=== PATIENT | female | born 1960 | race Caucasian/White ===

== ENCOUNTER 2020-11-06 09:54 | Outpatient (CLI) | payer OTHER, SELFPAY ==
--- NOTE | 2020-11-06 10:03 | MM_ITS ---
WS: [id number] BILATERAL SCREENING DIGITAL MAMMOGRAM WITH CAD HISTORY: SCREENING COMPARISON: None available. Bilateral CC and MLO views submitted. Computer aided detection analyzed. Breast composition: The breasts are heterogeneously dense, which may obscure small masses. No suspici ous masses, microcalcifications or architectural distortion. Benign-appearing calcification in the ce ntral LEFT breast. MM/[id number] IMPRESSION: BI-RADS: 2-Benign FOLLOW UP: 1 Year Follow-up
== END 2020-11-06 09:55 | disposition home or self-care (01) ==
LOC: RADSHAW 10:01
PROVIDERS: PCP Electrodiagnostic Medicine; Visit Provider Electrodiagnostic Medicine
DX: Z12.31 Encounter for screening mammogram for malignant neoplasm of breast (principal)
CPT/HCPCS: 77067

== ENCOUNTER → 2022-03-26 09:39 | Outpatient (BNVA) | payer OTHER, SELFPAY | PROVIDERS: PCP Family Medicine; Visit Provider Family Medicine | DX: I10 Essential (primary) hypertension (principal); R00.2 Palpitations; L65.9 Nonscarring hair loss, unspecified; R53.83 Other fatigue; H81.10 Benign paroxysmal vertigo, unspecified ear; M17.11 Unilateral primary osteoarthritis, right knee; Z76.89 Persons encountering health services in other specified circumstances; Z00.00 Encounter for general adult medical examination without abnormal findings | CPT/HCPCS: 80053; 80061; 83735; 84443; 85025 ==

== ENCOUNTER 2022-11-21 09:26 | Outpatient (CLI) | payer OTHER, SELFPAY ==
--- NOTE | 2022-11-21 09:34 | MM_ITS ---
WS: [id number] SCREENING DIGITAL TOMOSYNTHESIS MAMMOGRAM WITH CAD HISTORY: SCREENING COMPARISON: 11/06/2020 and 04/24/2016 Bilateral CC and MLO with tomosynthesis views submitted. Synthetic mammography reviewed. Computer aid ed detection analyzed. Breast composition: The breasts are heterogeneously dense, which may obscure small masses. No suspici ous masses, microcalcifications or architectural distortion. MM/[id number] IMPRESSION: BI-RADS: 1-Negative FOLLOW UP: 1 Year Follow-up
== END 2022-11-21 09:27 | disposition home or self-care (01) ==
PROVIDERS: PCP Family Medicine; Visit Provider Family Medicine
DX: Z12.31 Encounter for screening mammogram for malignant neoplasm of breast (principal)
CPT/HCPCS: 77063; 77067

== ENCOUNTER → 2023-02-05 16:06 | Outpatient (BNVA) | payer OTHER, SELFPAY | PROVIDERS: PCP Family Medicine; Visit Provider Family Medicine | DX: I10 Essential (primary) hypertension (principal) | CPT/HCPCS: 80048 ==

== ENCOUNTER 2023-02-10 07:36 | Emergency (ER) | payer OTHER, SELFPAY ==
[2023-02-10 07:40] VITALS: BP 164/80; PULSE 60; RESP 18; TEMP 36.4; O2SAT 100; BMI 30.7
--- NOTE | 2023-02-10 07:48 | ED_ITS ---
HPI - Extremity Injury (Lower) General: Chief Complaint: Extremity Problem,Nontraumatic Stated Complaint: knee injury Time Seen by Provider: 02/10/23 07:36 Source: patient Mode of arrival: wheelchair Limitations: no limitations History of Present Illness: Patient is a very nice 63-year-old female presents to ED today for evaluation of right knee pain/injury. Patient states a few days ago while at work she was pushing a wheelchair when she felt like she tweaked the knee. She states she continued to be ambulatory on the extremity without much difficulty. She states yesterday evening she was at home and states she was standing/pivoted the knee and felt like she twisted it . She states since then she has noticed swelling and fairly significant discomfort limiting ambulation. She arrives with a knee brace. Denies any previous injuries to the knee. She does have a known history of osteoarthritis diagnosed by her PCP Dr. Meyer. Denies calf pain/swelling. No redness/warmth to the joint. MD complaint: knee injury Onset (ago): day(s) Place: home and work Severity: moderate Relieving factors: immobilization Exacerbating factors: weight bearing, movement and palpation Context: walking and other (twisting) Associated symptoms: Reports inability to bear weight Other symptoms: none Treatments prior to arrival: other (knee brace) Review of Systems Card: Denies: chest pain Resp: Denies: dyspnea Musc: Reports: joint pain (R knee), joint swelling (R knee) and limited range of motion; Denies: neck pain, back pain, extremity pain, extremity swelling, joint redness or joint warmth Neuro: Reports: difficulty walking (secondary to R knee pain); Denies: numbness in extremities or sensory changes PFS ED PFSH: Medical History Hypertension Osteoarthritis of right knee Surgical History History of dilatation and curettage Family History Mother Diabetes CAD (coronary artery disease) Chronic kidney disease (CKD) Stroke Denies family history of Cancer Social History Smoking and tobacco status: never smoked Alcohol intake: never Substance/Drug Use: never Lives independently: Yes Household members: spouse Marital status: Number of children: 2 Current occupational status: retired 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 Exam Const: COMMON NORMALS: no acute distress, average body habitus, patient oriented x3, no limitations, healthy appearing, alert and well nourished Extremity: COMMON NORMALS: capillary refill normal, no clubbing, cyanosis or edema, no calf tenderness and no pedal edema GENERAL: Yes normal exam except as noted RIGHT LOWER EXTREMITY: Yes knee joint (TTP posteriolateral joint line; effusion) Right knee: Yes ROM (almost full ROM but slightly restricted secondary to edema), Yes neurovascular exam (normal) and Yes other (no obvious joint laxity noted ) Neuro: COMMON NORMALS: patient oriented x3, moves all extremities, no focal motor deficits and no sensory deficits noted SENSORIUM/ORIENTATION: Yes alert Course Vital Signs: Vital signs: Vital Signs Temperature 97.6 F 02/10/23 07:40 Pulse Rate 60 02/10/23 07:40 Respiratory Rate 18 02/10/23 07:40 Blood Pressure 164/80 02/10/23 07:40 Pulse Oximetry 100 02/10/23 07:40 Oxygen Delivery Me thod Room Air 02/10/23 07:40 MDM - Extremity Injury (Lower) Medical Decision Making XR negative for acute injury. She has significant arthritis/degenerative changes throughout the joint. At this time we will have her continue wearing her knee brace, give her crutches with instructions for weightbearing as tolerated, ice/elevation/NSAIDS, and have her followup with PCP in 1-2 weeks if knee pain does not seem to be improving. Discharge Plan Discharge Patient Disposition: Home Clinical Impression: Right knee sprain Qualifiers: Encounter type: initial encounter Involved ligament of knee: unspecified ligament Qualified Code(s): S83.91XA - Sprain of unspecified site of right knee, initial encounter Condition: Stable Prescriptions: New Medrol (Otto) 4 mg tablets,dose pack See Rx Instructions .ROUTE .COMPLEX Qty: 21 0RF Rx Instructions: orally per package directions No Action metoprolol succinate 100 mg tablet extended release 24 hr 100 mg PO DAILY 90 Days Qty: 90 0RF lisinopril 20 mg tablet 20 mg PO DAILY Qty: 90 1RF amoxicillin 500 mg tablet 500 mg PO BID Qty: 20 0RF Discharge Orders: Discharge ED (Routine); Ordered 02/10/23 Ordered By: Bita Hernandez Referrals: Jennifer Meyer MD [Primary Care Provider] - Patient Instructions: Knee Sprain (DC) Activity Restrictions/Additional Instructions: As we discussed you may use crutches as needed/weightbearing as tolerated. You need to ice and elevate the knee as much as possible to help with swelling. Begin taking an over the counter anti-inflammatory such as Ibuprofen or Naproxen. Continue to wear your knee brace. Please follow-up with your primary care provider in 1 to 2 weeks if symptoms do not seem to be improving. Stand Alone Forms: Work/School Release Coding Level of Care Code ED Certified Coatings Inspector for Chester Casanova
--- NOTE | 2023-02-10 07:53 | XRR_ITS ---
PROCEDURE INFORMATION: Exam: XR Right Knee Exam date and time: 02/10/2023 8:10 AM Age: 63 years old Clinical indication: Injury or trauma; Fall; Blunt trauma; Knee; Right; Additional info: Injury/swelling TECHNIQUE: Imaging protocol: Radiologic exam of the right knee. 3image(s) are provided. Views: 3 views. COMPARISON: No relevant prior studies available. FINDINGS: Bones/joints: Osseous alignment is maintained.No displaced fracture or dislocation is appreciated. There is a small amount of joint fluid present. There is some chronic advanced degeneration with multi compartmental spurring and narrowing including at the patellofemoral and medial compartments predominantly. There is some patellar quadriceps insertional spurring present. Soft tissues: There is some slight prominence of the soft tissues overall. No radiopaque foreign body or subcutaneous emphysema is appreciated. XR/XR knee RT 3V* [id number] IMPRESSION: 1. Osseous alignment is maintained.No fracture or dislocation is appreciated. 2. There is multi compartmental degeneration demonstrated as well as a small amount of joint fluid.
== END 2023-02-10 08:38 | disposition home or self-care (01) ==
PROVIDERS: Emergency Provider Physician Assistant; PCP Family Medicine
DX: S83.91XA Sprain of unspecified site of right knee, initial encounter (principal); I10 Essential (primary) hypertension; X50.9XXA Other and unspecified overexertion or strenuous movements or postures, initial encounter
CPT/HCPCS: 73562; 99283

== ENCOUNTER 2023-04-03 15:35 | Emergency (ER) | payer OTHER, SELFPAY ==
[2023-04-03 15:42] VITALS: BP 172/86; PULSE 81; RESP 18; TEMP 36.6; O2SAT 97; BMI 30.7
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
== END 2023-04-03 16:21 | disposition home or self-care (01) ==
PROVIDERS: Emergency Provider Physician Assistant; PCP Family Medicine
DX: S51.852A Open bite of left forearm, initial encounter (principal); Y04.1XXA Assault by human bite, initial encounter; Y92.210 Daycare center as the place of occurrence of the external cause; Y99.0 Civilian activity done for income or pay; I10 Essential (primary) hypertension; Y07.44 Child, perpetrator of maltreatment and neglect
CPT/HCPCS: 99283

== ENCOUNTER → 2024-03-28 10:34 | Outpatient (BNVA) | payer OTHER, SELFPAY | PROVIDERS: PCP Family Medicine; Visit Provider Family Medicine | DX: I10 Essential (primary) hypertension (principal) | CPT/HCPCS: 80053; 80061; 83036; 85025 ==

== ENCOUNTER → 2024-08-18 12:43 | Outpatient (BNVA) | payer OTHER, SELFPAY | PROVIDERS: PCP Family Medicine; Visit Provider Internal Medicine | DX: R07.9 Chest pain, unspecified (principal); R94.31 Abnormal electrocardiogram [ECG] [EKG] | CPT/HCPCS: 93005 ==

== ENCOUNTER 2024-10-03 11:09 | Outpatient (CLI) | payer OTHER, SELFPAY ==
--- NOTE | 2024-10-03 | ECG_ITS ---
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 Baseline heart rate was 84 beats per minute. Baseline blood pressure was 173/95 millimeters of mercury. Target heart rate was 157 beats per minute. Maximum heart rate achieved was 144, which was 91% of the target heart rate. Maximum blood pressure was 203/95 millimeters of mercury. Total exercise time was 5 minutes 1 second. Maximum METs achieved was 7.0, maximum VO2 was 24.5. The reason for ending the test was maximum effort achieved. The patient complained of shortness of breath, during the stress test, which then resolved at the end of the test. ELECTROCARDIOGRAM: BASELINE: Showed sinus rhythm, normal axis, no significant ST-T changes at the baseline noted. EXERCISE: At the peak exercise level, no significant ST-T changes suggestive of ischemia noted. RECOVERY: During the recovery period, heart rate dropped appropriately. No significant ST-T changes in the recovery suggestive of ischemia noted. CONCLUSION: 1. Exercise capacity. Poor 2. Heart rate response was tachycardiac. 3. Blood pressure response was hypertensive. 4. Symptoms not suggestive of ischemia. 5. Electrocardiogram portion of the stress test was not suggestive of ischemia. 6. Nuclear scan will be documented separately. Electronically Signed On 10-11-2024 18:57:15 CDT by GODFREY BILL [email or web address]
[2024-10-03 11:46] VITALS: BMI 33.5
[2024-10-03 12:20] VITALS: BP 168/86; PULSE 95
--- NOTE | 2024-10-03 13:30 | USCV_ITS ---
Viviane Bee Age: 64 Gender: F : 1960 Exam Date: 10/03/2024 12:38 Ordering Phys: Farncisco Schaffer M.D ([email or web address]) Technologist: [place] [facility] [place]: cp sob BP: 130 / 80 HR: 97 Rhythm: Sinus Technical Quality: Adequate MEASUREMENTS (Male / Female) Normal Values 2D ECHO LV Diastolic Diameter PLAX 3.2 cm 4.2 - 5.9 / 3.9 - 5.3 cm IVS Diastolic Thickness 1.3 cm 0.6 - 1.0 / 0.6 - 0.9 cm IVS Systolic Thickness 2.2 cm LVPW Diastolic Thickness 1.3 cm 0.6 - 1.0 / 0.6 - 0.9 cm LVPW Systolic Thickness 1.6 cm LVOT Diameter 1.8 cm LV Ejection Fraction 2D Teich 66.4 % LA Diameter 2.8 cm RA Systolic Volume 4C AL 27.5 ml RA Systolic Volume 4C MOD 27.2 ml Aorta at Sinotubular Diameter 2.7 cm M-MODE LA Ao Ratio MM 1.5 AV Cusp Separation MM 1.9 cm DOPPLER AV Peak Velocity 177.0 cm/s LVOT Peak Velocity 121.0 cm/s AV Area Cont Eq vti 1.7 cm squared AV Area Cont Eq pk 1.7 cm squared MV Peak Velocity 101.0 cm/s MV Area PHT 5.2 cm squared Mitral E to A Ratio 0.9 TV Peak Velocity 143.0 cm/s TR Peak Velocity 143.0 cm/s TR Peak Gradient 8.2 mmHg TV Peak E Velocity 82.0 cm/s FINDINGS Left Ventricle Left ventricle is normal in size. LV systolic function is normal with EF of 60-65%. No regional wall motion abnormalities are seen. Grade 1 diastolic dysfunction. Mild left ventricular hypertrophy Right Ventricle Normal in size and function Right Atrium Normal in size Left Atrium Normal in size Mitral Valve Structurally normal mitral valve. Mild mitral regurgitation. Aortic Valve Structurally normal aortic valve. No significant stenosis or regurgitation. Tricuspid Valve Mild tricuspid regurgitation. Insufficient TR jet to evaluate RVSP. Pulmonic Valve Not well visualized Pericardium Normal Aorta Normal in size IVC Not well visualized CONCLUSIONS LV systolic function is normal with EF of 60-65%. Grade 1 diastolic dysfunction. Mild left ventricular hypertrophy Mild mitral regurgitation. Mild tricuspdi regurgitation. No comparison studies are available Francisco Schaffer MD (Electronically Signed) Final Date: 11 Oct 2024 11:59 S
== END 2024-10-03 11:10 | disposition home or self-care (01) ==
PROVIDERS: PCP Family Medicine; Visit Provider Internal Medicine
DX: R07.9 Chest pain, unspecified (principal); R93.1 Abnormal findings on diagnostic imaging of heart and coronary circulation; I34.0 Nonrheumatic mitral (valve) insufficiency; I07.1 Rheumatic tricuspid insufficiency; R00.0 Tachycardia, unspecified
CPT/HCPCS: 93017; 93306

== ENCOUNTER 2024-11-25 08:38 | Outpatient (CLI) | payer OTHER, SELFPAY ==
[2024-11-25 09:23] LABS: Anion Gap 16.3 (5-19); Blood Urea Nitrogen 12 mg/dL (8-23); Calcium 9.2 mg/dL (8.5-10.5); Carbon Dioxide 27 mmol/L (22-29); Chloride 104 mmol/L (98-107); Glucose 119 mg/dL (65-115); Osmolality Calculated 297 mOsm/kg (285-295); Potassium 4.3 mmol/L (3.5-5.1); Sodium 143 mmol/L (136-145)
== END 2024-11-25 08:39 | disposition home or self-care (01) ==
PROVIDERS: PCP Family Medicine; Visit Provider Nurse Practitioner Family
DX: I10 Essential (primary) hypertension (principal)
CPT/HCPCS: 36415; 80048

== ENCOUNTER 2025-02-10 08:56 | Outpatient (CLI) | payer OTHER, SELFPAY ==
--- NOTE | 2025-02-10 09:00 | MM_ITS ---
WS: [id number] SCREENING DIGITAL BREAST TOMOSYNTHESIS MAMMOGRAM WITH CAD HISTORY: SCREENING COMPARISON: 11/21/2022, 11/06/2021 Bilateral CC and MLO with tomosynthesis and synthetic mammography submitted. Computer aided detection analyzed. Breast composition: The breasts are heterogeneously dense, which may obscure small masses. New partially distorted asymmetry in the lateral inferior LEFT breast measures 5 x 5 mm. Not definitely seen on the lateral projection. This may be a small lymph node but needs to be further evaluated. No additional suspicious masses or grouping of calcification. MM/MM [facility] tomosynthesis [id number] IMPRESSION: BI-RADS: 0 - Incomplete: Need additional imaging evaluation FOLLOW UP: Need Additional Imaging LEFT breast: Spot compression views (CC and MLO). True ML. Ultrasound to follow if abnormality persists.
== END 2025-02-10 08:57 | disposition home or self-care (01) ==
LOC: RAD 08:57
PROVIDERS: PCP Family Medicine; Visit Provider Family Medicine
DX: Z12.31 Encounter for screening mammogram for malignant neoplasm of breast (principal); R92.333 Mammographic heterogeneous density, bilateral breasts; N64.89 Other specified disorders of breast
CPT/HCPCS: 77063; 77067

== ENCOUNTER 2025-02-14 12:59 | Outpatient (CLI) | payer OTHER, SELFPAY ==
--- NOTE | 2025-02-14 13:15 | MM_ITS ---
WS: [id number] ADDITIONAL VIEWS LEFT MAMMOGRAM WITH DIGITAL BREAST TOMOSYNTHESIS. HISTORY: New asymmetry in the lateral inferior LEFT breast COMPARISON: 02/10/2025, 11/21/2022 Spot compression views LEFT breast in CC, MLO projections and true ML submitted with digital breast tomosynthesis and SM. Breast composition: The breasts are heterogeneously dense, which may obscure small masses. The asymmetry seen in the lateral LEFT breast on the prior study is no longer present. There is no asymmetry or nodule remaining. Breasts are very dense. MM/MM diag LT tomosynthesis [id number] IMPRESSION: BI-RADS: 2 - Benign FOLLOW UP: 1 Year Follow-up Return to annual screening mammography.
== END 2025-02-14 13:00 | disposition home or self-care (01) ==
PROVIDERS: PCP Family Medicine; Visit Provider Family Medicine
DX: N64.89 Other specified disorders of breast (principal)
CPT/HCPCS: 77061; G0279